=== PATIENT | female | born 1950 | race African-American/Black ===

== ENCOUNTER 2024-01-04 16:24 | Emergency (ER) | payer OTHER, BC ==
[2024-01-04 16:42] VITALS: RESP 18; TEMP 98.2; BMI 35.0
[2024-01-04 17:44] LABS: HEMOGLOBIN 13.4 G/dL (10.7-15.3); MCH 29.6 pg (25.7-33.7); MCHC 31.8 g/dl (32.0-36.0); MEAN CELL VOLUME 93.1 fl (80-96); PLATELET COUNT 259.8 10^3/uL (134-434); RBC 4.51 10^6/uL (3.60-5.2); RDW 13.7 % (11.6-15.6); WHITE BLOOD COUNT 7.2 10^3/uL (4.0-10.8)
[2024-01-04 17:46] LABS: INR 1.01 (0.83-1.09); PROTHROMBIN TIME (PATIENT) 11.5 SEC (9.7-13.0)
[2024-01-04 17:57] LABS: ALBUMIN 4.4 g/dl (3.4-5.0); BILIRUBIN,TOTAL 1.9 mg/dl (0.2-1); CALCIUM 10.7 mg/dl (8.5-10.1); CREATININE 0.9 mg/dl (0.6-1.3); POTASSIUM 3.7 mmol/L (3.5-5.1); TOT PROT 7.1 g/dl (6.4-8.2)
[2024-01-04 18:08] LABS: PLATELET ESTIMATE ADEQUATE
[2024-01-04 18:31] VITALS: BP 127/83; PULSE 68
== END 2024-01-04 18:51 | disposition home or self-care (01) ==
LOC: FER 16:24
DX: R79.89 Other specified abnormal findings of blood chemistry (principal)
CPT/HCPCS: 36415; 80053; 85027; 85379; 85384; 85610; 85730; 86850; 86900; 86901; 99283-25